=== PATIENT | female | born 1995 | race Two or more races ===

== ENCOUNTER 2017-03-12 22:04 | Emergency (ER) | payer MEDICAID, OTHER ==
[~2017-03-12] VITALS: Ht 160 cm; Wt 99.8 kg
[2017-03-12 22:05] VITALS: BP 148/87
[2017-03-12] MEDS ORDERED: BACITRACIN TOP OINT 1 UD PKG TOP ONE (23:45)
[2017-03-13] MEDS ORDERED: LIDOCAINE 2%HCL (LOCAL ANESTH.) INJ 20ML MDV ONE (00:41)
[2017-03-13] MEDS ORDERED: LIDOCAINE 2%HCL (LOCAL ANESTH.) INJ 20ML MDV IJ ONE (01:00)
== END 2017-03-13 01:02 | disposition home or self-care (01) ==
LOC: ER 22:21
DX: S46.911A Strain of unspecified muscle, fascia and tendon at shoulder and upper arm level, right arm, initial encounter (principal); S41.111A Laceration without foreign body of right upper arm, initial encounter; S80.12XA Contusion of left lower leg, initial encounter; V49.59XA Passenger injured in collision with other motor vehicles in traffic accident, initial encounter; Y93.89 Activity, other specified; Y99.8 Other external cause status; Y92.410 Unspecified street and highway as the place of occurrence of the external cause
CPT/HCPCS: 73030; 73590